=== PATIENT | male | born 1945 | race Caucasian/White ===

== ENCOUNTER 2019-12-16 09:17 | Inpatient (IN) ==
--- NOTE | 2019-11-14 13:11 | PAT Medication Instructions ---
Medication Instructions Date of Service November 14, 2019 Home Medications acetaminophen [Tylenol Extra Strength] 1,000 mg PO Q6H PRN amlodipine 10 mg PO QAM aspirin 325 mg PO QAM atorvastatin [Lipitor] 10 mg PO PM candesartan 16 mg PO QAM coQ10 (ubiquinol) 100 mg PO QPM omeprazole 20 mg PO QAM ASK your prescriber and surgeon aspirin 325 mg PO QAM (check for instructions with your surgeon, and be sure OK with master automotive glass technician before stopping) STOP taking 2 weeks before surgery If surgery is within 2 weeks, stop taking as soon as possible. coQ10 (ubiquinol) 100 mg PO QPM DO NOT take the morning of surgery candesartan 16 mg PO QAM Take morning of surgery With a small sip of water, OTHERWISE NOTHING TO EAT OR DRINK AFTER MIDNIGHT: acetaminophen [Tylenol Extra Strength] 1,000 mg PO Q6H PRN (if needed, may be taken up to four hours before surgery) amlodipine 10 mg PO QAM omeprazole 20 mg PO QAM Take evening before surgery acetaminophen [Tylenol Extra Strength] 1,000 mg PO Q6H PRN (if needed) atorvastatin [Lipitor] 10 mg PO PM Other Notes If you have any questions please call us at [phone] or [phone] or [phone] or [phone]
--- NOTE | 2019-11-15 14:16 | Anesthesiology Consultation ---
Date of Service November 15, 2019 Assessment & Plan (1) Encounter for pre-operative examination: COVID Status: As of 11/14 assessment, patient denies travel to endemic area, known exposure/sick contacts, or symptoms of COVID19. Patient instructed that they and their household members must follow strict social distancing guidelines, wear a mask in public and avoid travel for 14 days prior to surgery. Preoperative COVID19 testing to be completed prior to surgery per surgeon's arr angements. Patient made aware to self-isolate as much as possible between COVID testing and surgery. Chart Review Chart Review: Acceptable Risk for Surgery (pending surgeon ordered PCP clearance) and Patient seen in Pre Admission Testing Teaching & Discussion Instructed NPO after midnight before surgery, except medications with 15 cc of water. Medication instructions provided according to the PAT guidelines. History Surgery Operation Date: 12/16/19 07:45 Proposed Procedures p L4-L5 Decompression and Fusion, Spinal Cord Monitoring - Wes Song, Height/Weight Height: 5 ft 7 in Weight: 99.6 kg Allergies Allergy/AdvReac Type Severity Reaction Status Date / Time No Known Allergies Allergy Verified 11/10/19 13:52 Medications Home Medications Medication Instructions Recorded Confirmed Last Taken acetaminophen [Tylenol Extra 1,000 mg PO Q6H PRN 11/10/19 11/10/19 Unknown Strength] amlodipine 10 mg PO QAM 11/10/19 11/10/19 Unknown aspirin 325 mg PO QAM 11/10/19 11/10/19 Unknown atorvastatin [Lipitor] 10 mg PO PM 11/10/19 11/10/19 Unknown candesartan 16 mg PO QAM 11/10/19 11/10/19 Unknown coQ10 (ubiquinol) 100 mg PO QPM 11/10/19 11/10/19 Unknown omeprazole 20 mg PO QAM 11/10/19 11/10/19 Unknown Past Medical History Medical History (Updated 11/15/19 @ 14:20 by Mauro Mar) Arthritis CAD (coronary artery disease) s/p cardiac cath with one stent 2011. Previously followed with Dr. Rose, was released from the practice and now just follows with PCP. GERD (gastroesophageal reflux disease) Hyperlipidemia Hypertension Exercise / Class Metabolic Activity II 4-5 Yardwork/Stairs/Walk up hill (Limited by knee pain but denies any SOB or CP with 1 FOS. Does yardwork.) Past Surgical History Surgical History (Updated 11/10/19 @ 15:11 by Malinda Collazo RN) History of cardiac cath 1 STENT PLACED [place]2011 History of colonoscopy History of total knee replacement R/L Past Anesthesia History No Hx of Anesthesia Complications and No Family Hx of Anesthesia Complications History of PONV No Hx of PONV and No Hx of Motion Sickness Social History Smoking Status: Never smoker Do You Dip or Chew Tobacco: No Hx Alcohol Use: No Hx Substance Use: No Review of Systems Pt denies any recent chest pain, shortness of breath, palpitations, cough, fever, URI, or uncontrolled acid reflux (controlled with medications). Physical Exam Vital Signs BP: 130/72 P: 71bpm SPO2: 96% RA T: 98.0 F R: 12 ENMT Mouth: + chipped teeth (upper incisors) and + macroglossia; no dental restorations and no loose teeth Thyromental Distance: > or= 3.5 Finger Breadths Mallampati Class: II Neck normal visual inspection and + limited neck extension (very) Respiratory normal respiratory effort Auscultation: lungs clear to auscultation bilaterally Cardiovascular Rate/Rhythm: regular rate and regular rhythm (few ectopic beats) Heart Sounds: no murmur Extremities: no edema Testing Laboratory Results 11/15/19 14:37 11/15/19 14:37 PT 11.2 Seconds (9.0-12.0) 11/15/19 14:37 INR 1.1 (0.9-1.1) 11/15/19 14:37 APTT 31.7 Seconds (21.0-31.0) H 11/15/19 14:37 Urine Color Yellow 11/15/19 Unknown Urine Appearance Clear (Clear) 11/15/19 Unknown Urine pH 5.0 (4.5-7.5) 11/15/19 Unknown Ur Specific [place] 1.017 (1.000-1.030) 11/15/19 Unknown Urine Protein 2+ (Negative) H 11/15/19 Unknown Urine Glucose (UA) Negative (Negative) 11/15/19 Unknown Urine Ketones Negative (Negative) 11/15/19 Unknown Urine Nitrite Negative (Negative) 11/15/19 Unknown Ur Leukocyte Esterase Negative (Negative) 11/15/19 Unknown Urine WBC (Auto) 1-5 /hpf (0-5) 11/15/19 Unknown Urine RBC (Auto) 0-4 /hpf (0-4) 11/15/19 Unknown U Hyaline Cast (Auto) 0 /lpf (0-5) 11/15/19 Unknown U Epithel Cells (Auto) 5-10 /lpf (0-5) H 11/15/19 Unknown Urine Bacteria (Auto) Negative (Negative) 11/15/19 Unknown Blood Type O Positive 11/15/19 14:37 Antibody Screen NEGATIVE 11/15/19 14:37 Electrocardiogram Date: 11/15/19 Findings: + NSR @ (69 with sinus arrhythmia) Chest X-Ray Date: 11/15/19 Findings: + NAD Echocardiogram Date: 02/19/17 EF: 65-70% Mildly dilated ascending aorta at 3.9 cm. Basal inferior segment and basal inferoseptal segment are abnormal. Not previously reported.
--- NOTE | 2019-11-15 14:55 | XRay Report ---
TWO VIEW CHEST CLINICAL HISTORY: Preoperative examination. FINDINGS: PA and lateral chest radiographs are obtained. No prior studies are available for compariso n at the time of dictation. The cardiomediastinal silhouette is unremarkable. There are calcified le ft hilar lymph nodes. The lungs and pleural spaces are clear. There is no pneumothorax. The bony thor ax appears intact. IMPRESSION: No active disease in the chest. ACT 112: Negative or not required by law. Electronically signed by: Vishnu Harding M.D. 11/15/2019 2:53 PM
[2019-11-15 16:00] LABS: Basophils # (auto) 0.04 K/uL (0-0.2); Basophils % (auto) 0.5 %; Eosinophils # (auto) 0.07 K/uL (0-0.5); Eosinophils % (auto) 0.9 %; Hematocrit (blood only) 47.3 % (42-52); Hemoglobin 16.1 g/dL (14.0-18.0); Immature Granulocytes # (auto) 0.01 K/uL (0.00-0.02); Immature Granulocytes % (auto) 0.1 %; Lymphocytes # (auto) 2.29 K/uL (1.2-3.4); Lymphocytes % (auto) 29.6 %; Mean Corpuscular Hemoglobin 32.6 pg (25-34); Mean Corpuscular Volume 95.7 fL (80-100); Monocytes # (auto) 0.75 K/uL (0.11-0.59); Monocytes % (auto) 9.7 %; Neutrophils # (auto) 4.57 K/uL (1.4-6.5); Neutrophils % (auto) 59.2 %; Platelet Count 221 K/uL (130-400); RDW Coefficient of Variation 12.6 % (11.5-14.5); RDW Standard Deviation 44.3 fL (36.4-46.3); Red Blood Count 4.94 M/uL (4.7-6.1); White Blood Count 7.73 K/uL (4.8-10.8)
[2019-11-15 16:03] LABS: Appearance Urine Clear (Clear); Bacteria Urine Automated Negative (Negative); Bilirubin Urine Negative (Negative); Blood Urine 1+ (Negative); Cast Urine Automated 0 /lpf (0-5); Color Urine Yellow; Glucose Urine UA Negative (Negative); Ketones Urine Negative (Negative); Leukocyte Esterase Urine Negative (Negative); Nitrite Urine Negative (Negative); Protein Urine 2+ (Negative); RBC Urine Automated 0-4 /hpf (0-4); Specific Gravity Urine 1.017 (1.000-1.030); Urobilinogen Urine Negative (Negative)
[2019-11-15 16:09] LABS: BUN Creatinine Ratio 12.9 (10-20); Creatinine Clr Calc Pharmacy 52.1 ml/min; Est GFR (African American) 55.8; Est GFR (Non-African American) 48.2; Potassium 3.9 mmol/L (3.5-5.1)
[2019-11-15 16:11] LABS: INR 1.1 (0.9-1.1); Partial Thromboplastin Ratio 1.1; Partial Thromboplastin Time 31.7 Seconds (21.0-31.0); Prothrombin Time 11.2 Seconds (9.0-12.0)
--- NOTE | 2019-11-16 06:01 | Electrocardiogram Report ---
Test Reason : Blood Pressure : / mmHG Vent. Rate : 069 BPM Atrial Rate : 069 BPM P-R Int : 184 ms QRS Dur : 096 ms QT Int : 390 ms P-R-T Axes : 049 074 048 degrees QTc Int : 417 ms Normal sinus rhythm with sinus arrhythmia Normal ECG No previous ECGs available Confirmed by Adria Frias ([id number]) on 11/16/2019 6:01:29 AM Referred By: Wes Song Confirmed By:Adria Frias
[~2019-12-16 09:17] MED LIST: ACETAMINOPHEN 500 MG TAB PO SCH; CeleBREX 200 MG CAP PO SCH; GABAPENTIN 300 MG CAP PO SCH; LR 15ML/HR IV SCH; ceFAZolin 2000MG 2,000 MG/15 ML SYR IV SCH
[2019-12-16] MEDS ORDERED: NEOSTIGMINE METHYLSULFATE 1 MG/ML 10ML VIAL ONE (10:50)
[2019-12-16] MEDS ORDERED: ONDANSETRON INJ 2 MG/ML 2 ML VIAL ONE (10:50)
[2019-12-16] MEDS ORDERED: MIDAZOLAM HCL 1 MG/ML 2ML VIAL ONE (10:50)
[2019-12-16] MEDS ORDERED: GLYCOPYRROLATE 0.2 MG/ML VIAL ONE (10:50)
[2019-12-16] MEDS ORDERED: DEXAMETHASONE SOD INJ 4 MG/ML VIAL ONE (10:50)
[2019-12-16] MEDS ORDERED: PROPOFOL IV EMULSION 10 MG/ML 20 ML VIAL IV ONE (10:50)
[2019-12-16] MEDS ORDERED: fentaNYL citrate 100 MCG/2 ML VIAL ONE (10:50)
[2019-12-16] MEDS ORDERED: LIDOCAINE HCL 2% 2 ML VIAL/AMP(20MG/ML) INFIL ONE (10:50)
--- NOTE | 2019-12-16 11:14 | History & Physical Bridge Note ---
Date of Service December 16, 2019 History & Physical Bridge Note I have examined the patient, reviewed the History & Physical and in the interval since the performance of the History & Physical I have noted the following changes of clinical significance: no changes noted
--- NOTE | 2019-12-16 11:15 | History & Physical Report ---
Date of Service December 16, 2019 Assessment & Plan (1) Neurogenic claudication due to lumbar spinal stenosis: Admission and Anticipated Discharge Date Admission Date: L4-L5 decompression fusion History of Present Illness Chief Complaint: Back and leg pain Primary Care Provider: Jovany Zhang This is a 74-year-old male who presents with worsening back and leg pain peer after failing course of nonoperative care is here for surgical intervention. Allergies Allergy/AdvReac Type Severity Reaction Status Date / Time No Known Allergies Allergy Verified 12/16/19 10:06 Home Medications Home Medications Medication Instructions Recorded Confirmed Type acetaminophen [Tylenol Extra 1,000 mg PO Q6H PRN 11/10/19 12/16/19 History Strength] amlodipine [Norvasc] 10 mg PO QAM 11/10/19 12/16/19 History aspirin 325 mg PO QAM 11/10/19 12/16/19 History atorvastatin [Lipitor] 10 mg PO PM 11/10/19 12/16/19 History candesartan [Atacand] 16 mg PO QAM 11/10/19 12/16/19 History coQ10 (ubiquinol) 100 mg PO QPM 11/10/19 12/16/19 History omeprazole 20 mg PO QAM 11/10/19 12/16/19 History Past Med/Surg History Medical History (Updated 12/16/19 @ 11:14 by Wes Song DO) Arthritis CAD (coronary artery disease) s/p cardiac cath with one stent 2011. Previously followed with Dr. Rose, was released from the practice and now just follows with PCP. GERD (gastroesophageal reflux disease) Hyperlipidemia Hypertension Surgical History History of cardiac cath 1 STENT PLACED [place] 2011 History of colonoscopy History of total knee replacement R/L Social History Smoking Status: Never smoker Do You Dip or Chew Tobacco: No; Hx Alcohol Use: No Hx Substance Use: No Preferred Language: Telugu Communication Ability: Effective Shredding Specialist Required: No Beliefs That Will Affect Care: None Current Living Situation: Spouse Other Information That Helps Us Care for You: No Feels Safe at Home: Yes Safety Concerns: Feels Safe At This Time Assistive Devices: None Physical Exam Physical Exam: Patient is alert and oriented neurologically intact. Heart regular rate and rhythm. Lungs clear to auscultation. Results & Data ([facility]) Vital Signs (Past 12 Hours) Vital Signs Temp Pulse Resp BP Pulse Ox 12/16/19 10:11 36.6 C 71 18 169/79 H 96
[2019-12-16] MEDS ORDERED: BUPIVACAINE/EPINEPHRINE 0.25% 1:200,000 30 ML VIAL ONE (11:32)
[2019-12-16] MEDS ORDERED: BACITRACIN INJ 50,000 UNIT VIAL ONE (11:32)
[2019-12-16] MEDS ORDERED: ePHEDrine sulfate 50 MG/ML AMP IV PRN (11:59)
[2019-12-16] MEDS ORDERED: PROMETHAZINE HCL 12.5 MG in SODIUM CHLORIDE 0.9% 50 ML IV PRN ×2 (11:59→15:34)
[2019-12-16] MEDS ORDERED: METOCLOPRAMIDE HCL INJ 5 MG/ML 2 ML VIAL IV PRN ×2 (11:59→15:34)
[2019-12-16] MEDS ORDERED: ONDANSETRON INJ 2 MG/ML 2 ML VIAL IV PRN (11:59)
[2019-12-16] MEDS ORDERED: ATROPINE SULFATE 0.1 MG/ML 10ML SYR IV PRN (11:59)
[2019-12-16] MEDS ORDERED: fentaNYL citrate 100 MCG/2 ML VIAL IV PRN (11:59)
[2019-12-16] MEDS ORDERED: HYDROmorphone INJ 2 MG/ML SYR/VIAL IV PRN (11:59)
[2019-12-16] MEDS ORDERED: HYDROmorphone INJ 2 MG/ML SYR/VIAL ONE (12:37)
[2019-12-16] MEDS ORDERED: FLOSEAL HEMOSTATIC MATRIX 10ML TOP ONE (12:39)
--- NOTE | 2019-12-16 13:41 | Operative Report ---
Post Operative Report Pre & Post Diagnosis Operation Date: 12/16/19 10:35 Pre-Op Diagnosis: Spinal Stensis, Lumbar Region with Neurogenic Claudication Post-Op Diagnosis: Spinal Stensis, Lumbar Region with Neurogenic Claudication I identified the patient and participated in the time-out.: Yes Procedure Operation Date: 12/16/19 10:35 Actual Procedures #1 lumbar decompression bilateral medial facetectomies and foraminotomies L3-4 and L4-5. #2 posterior spinal fusion L4-5 per #3 placement posterior instrumentation L4-5. #4 interbody fusion L4-5. #5 placement of peek cage 13 x 26 mm at L4-5. #6 placement locally harvested morselized autograft in the posterior lateral gutters. #7 placement infuse collagen sponge, master graft in the posterior lateral gutters and osteopenia by space. Surgeon Wes Song, DO Exhibits Manager Geovany Roberto Estimated Blood Loss 100 Findings See Below The patient is 5 feet 7 inches tall weighing over 99 kg with a BMI in excess of 34. The patient's body habitus did create significant technical difficulty requiring her deepest retractors and longest instruments in order to perform this procedure. This at least 25% increase to the operative time. Specimens None Indications This is a 74-year-old male who presents above-mentioned diagnosis after failing extensive course of nonoperative care is here for the above-mentioned procedure. Description of Procedure Patient was met with identified informed consent obtained. Patient was then taken to the operative suite underwent an patient placed in a prone position the Eyad table on top Pramod frame. All bony prominences well-padded eyes inspected to ensure no external pressure placed upon them. This point the lumbar spine was prepped and draped in normal sterile fashion. Sharp dissection with the assistance of Bovie cautery is performed down to and exposing the lamina and transverse processes of L4 and L5 bilaterally and then from a caudal cephalad fashion neck complete laminectomy of L4 partial laminectomy of L3 was performed including bilateral medial facetectomies and foraminotomies addressing severe spinal stenosis. Pedicle screws were then placed in L4 and L5 bilaterally with assistance of fluoroscopy the proper sized yadira placed. By way of a transforaminal approach on the right complete discectomy of L4-5 was performed endplates curetted to subcortical bleeding bone and a 13 x 26 mm peek cage filled with osteo-bone graft tapped in position. The rods then locked into final position bilaterally. The transverse processes of L4 and L5 bur to subcortical bleeding bone. Infuse collagen sponge master graft and local autograft was then placed in the posterior gutters. 15 round EDISON drain inserted. Incision was then closed with 1 Vicryl the fascia 2-0 Vicryl subcutaneously and 4 Monocryl for final skin closure. Steri-Strip sterile dressings placed. Patient waken taken to PACU stable condition. Please note spinal cord monitoring was utilized that the procedure no changes noted. Lastly Geovany pierce was present at the entire surgery involved the patient positioning complex portions of the surgery and final skin closure. I attest to the content of the Intraoperative Record and any orders documented therein. Any exceptions are noted below.
--- NOTE | 2019-12-16 13:44 | Fluoroscopy Report ---
FL lumbar spine 2-3V CLINICAL HISTORY: L4-L5 DECOMP/FUSION COMPARISON STUDY: None. FLUOROSCOPY TIME: 14 seconds. FLUOROSCOPIC IMAGES: 2 FINDINGS: Fluoroscopy was provided during L4-L5 discectomy with interbody spacer placement. Posterior decompression is noted. There are bilateral pedicle screws at the L4 and L5 levels. Hardware is inta ct. IMPRESSION: Fluoroscopy provided during L4-L5 discectomy, posterior decompression and bilateral pedi arnoldo screw fusion. ACT 112: Negative or not required by law. Electronically signed by: Hudson Covington M.D. 12/16/2019 1:43 PM
[2019-12-16] MEDS ORDERED: ROCURONIUM BROMIDE 10 MG/ML 5 ML VIAL IV ONE (13:49)
[2019-12-16] MEDS ORDERED: ePHEDrine sulfate 50 MG/ML SYR ONE (14:14)
[2019-12-16] MEDS ORDERED: PHENYLEPHRINE 100MCG/ML 5ML SYR ONE (14:14)
[2019-12-16] MEDS ORDERED: ACETAMINOPHEN 500 MG TAB PO PRN ×2 (15:34→15:39)
[2019-12-16] MEDS ORDERED: hydrOXYzine HCl 25 MG TAB PO PRN (15:34)
[2019-12-16] MEDS ORDERED: DO NOT ADMINISTER FLU VACCINE PRN (15:34)
[2019-12-16] MEDS ORDERED: bisacodyL 10 MG SUPP PR PRN (15:34)
[2019-12-16] MEDS ORDERED: SOD PHOSPHATE/SOD BIPHOSPHATE ENEMA 132 ML BTL PR PRN (15:34)
[2019-12-16] MEDS ORDERED: NALOXONE HCL 0.4 MG/1 ML VIAL/CARP IV PRN (15:34)
[2019-12-16] MEDS ORDERED: ONDANSETRON 4 MG OD TAB PO PRN (15:34)
[2019-12-16] MEDS ORDERED: DO NOT ADMINISTER PNEUMOCOCCAL VACCINE PRN (15:34)
[2019-12-16] MEDS ORDERED: FAMOTIDINE 20 MG TAB PO PRN (15:34)
[2019-12-16] MEDS ORDERED: ALUMINUM/MAGNESIUM SUSP 30 ML UDC PO PRN (15:34)
[2019-12-16] MEDS ORDERED: ACETAMINOPHEN 1,000 MG/100 ML VIAL IV PRN (15:34)
[2019-12-16] MEDS ORDERED: diphenhydrAMINE Capsule 25 MG CAP PO PRN (15:34)
[2019-12-16] MEDS ORDERED: HYDROmorphone INJ 1 MG/ML SYRINGE IV PRN (15:34)
[2019-12-16] MEDS ORDERED: LORazepam 0.5 MG/1 ML VIAL IV PRN (15:34)
[2019-12-16] MEDS ORDERED: MAGNESIUM HYDROXIDE SUSP 30 ML UDC PO PRN (15:34)
--- NOTE | 2019-12-16 15:58 | Anesthesiology Progress Note ---
Date of Service December 16, 2019 Anesthesia Post Procedure Vital Signs Vital Signs: Temp Pulse Pulse Resp BP BP Pulse Ox 12/16/19 15:46 73 16 130/77 95 12/16/19 15:10 36.4 C L 72 18 147/77 H 95 12/16/19 14:55 36.4 C L 71 13 153/69 H 95 12/16/19 14:45 68 16 135/85 96 12/16/19 14:35 67 14 165/68 H 95 12/16/19 14:25 65 14 152/71 H 98 12/16/19 14:15 68 14 189/74 H 98 12/16/19 14:05 36.7 C 78 17 179/84 H 98 12/16/19 10:11 36.6 C 71 18 169/79 H 96 Pain Intensity Lower Medial Back: Pain Intensity: 6 Transfer of Care Handoff Completed per policy Notes Mental Status: alert / awake / arousable and participated in evaluation Patient Amnestic to Procedure: Yes Nausea / Vomiting: adequately controlled Pain: adequately controlled Airway Patency, RR, SpO2: stable & adequate BP & HR: stable & adequate Hydration State: stable & adequate Anesthetic Complications: no major complications apparent
[2019-12-16] MEDS: HYDROmorphone INJ 0.5 MG/0.5 ML SYR IV PRN (16:05)
[2019-12-16] MEDS: SODIUM CHLORIDE 0.9% 1000ML 1,000 ML IV SCH ×2 (16:05→22:07)
[2019-12-16] MEDS: ONDANSETRON INJ 2 MG/ML 2 ML VIAL IV PRN (16:10)
--- NOTE | 2019-12-16 16:48 | Consultation ---
Date of Consultation December 16, 2019 Assessment & Plan (1) Neurogenic claudication due to lumbar spinal stenosis: S/P Lumbar decompression and fusion L4-[address] Song, POD #0 EBL 100ml; EDISON drain 90ml tolerated procedure well pain/wound management per ortho activity and therapy as directed by ortho pt was educated and instructed on incentive spirometry q1hwa, wean O2 as able monitor h/h pre op labs were reviewed, bsg 160 - will obtain a1c in a.m.; also elevated cr 1.44 - monitor bmp (2) CAD (coronary artery disease): no chest pain/sob continue asa, statin, ARB (3) Hypertension: blood pressure stable continue amlodipine and candesartan monitor (4) Elevated serum creatinine: on pre op labs cr 1.44 unknown baseline, possible underlying ckd will follow labs in mean time avoid nephrotoxic agents (5) GERD (gastroesophageal reflux disease): continue PPI Disposition: per primary Follow up: PCP Dr. Zhang Pt was seen and examined in collaboration with Dr. Ramos, please see addendum Starting 12/16/2019 pt will be under the care of Dr. Hayward Thank you for this consultation. We will follow the patient with you during their hospital stay. You [facility] via pager @ [phone]. Supervising Physician Co-Signing Physician Notes I, Dr. Hossein Ramos, have seen and examined the patient Errol Hamilton with physician acute care nursing assistant and would like to comment that On physical Exam General: no acute distress Lungs: clear to auscultation bilaterally, no wheezing Heart: regular rate Back: dressing on lower back with drain Extremities/Neuro: able to move all extremities Assessment and Plan - Patient will Spinal Stensis, Lumbar Region with Neurogenic Claudication - s/p back surgery by Dr. Song on 12/16/19 (Actual Procedures #1 lumbar decompression bilateral medial facetectomies and foraminotomies L3-4 and L4-5. #2 posterior spinal fusion L4-5 per #3 placement posterior instrumentation L4-5. #4 interbody fusion L4-5. #5 placement of peek cage 13 x 26 mm at L4-5. #6 placement locally harvested morselized autograft in the posterior lateral gutters. #7 placement infuse collagen sponge, master graft in the posterior lateral gutters and osteopenia by space.) -PT/OT evlautions -management of the wound vac and DVT prophylaxis as per orthopedics -trend the CBC , and renal function -continue home medications of amlodipine and statin as documented by physician acute care nursing assistant for other health issues, home medication of candesartan to be replaced with losartan while in hospital -medicine hospitalist consult service to follow with primary orthopedic service -My colleague Dr. Hayward will be the hospitalist consult attending starting on 12/17/2019 History of Present Illness Requesting Physician: Dr. Song Reason for Consultation: Postop medical management Attending Physician: Wes Song, DO History of Present Illness This is a pleasant 74-year-old male with significant past medical history of CAD, HTN, HLD, GERD who presents for elective lumbar procedure by Dr. Song. Patient suffers from lumbar spinal stenosis with neurogenic claudication and underwent L4-L5 decompression fusion today. He tolerated procedure well. He has hx of CAD with history of stent in 2011. He denies any chest pain or exertional dyspnea. He is maintained as outpatient on full dose aspirin, atorvastatin and candesartan. His blood pressures been t owards outpatient with amlodipine and candesartan. Postoperatively he feels well but is complaining of incisional pain. He otherwise feels uncomfortable. He denies any fever, chills, sweats, and his, dizziness, chest pain, shortness breath, cough, nausea, vomiting, abdominal pain. He is requesting a meal tray. Allergies Allergy/AdvReac Type Severity Reaction Status Date / Time No Known Allergies Allergy Verified 12/16/19 10:06 Home Medications Home Medications Medication Instructions Recorded Confirmed Type acetaminophen [Tylenol Extra 1,000 mg PO Q6H PRN 11/10/19 12/16/19 History Strength] amlodipine [Norvasc] 10 mg PO QAM 11/10/19 12/16/19 History aspirin 325 mg PO QAM 11/10/19 12/16/19 History atorvastatin [Lipitor] 10 mg PO PM 11/10/19 12/16/19 History candesartan [Atacand] 16 mg PO QAM 11/10/19 12/16/19 History coQ10 (ubiquinol) 100 mg PO QPM 11/10/19 12/16/19 History omeprazole 20 mg PO QAM 11/10/19 12/16/19 History Patient History Medical History (Updated 12/16/19 @ 17:12 by Radha Wilkins PA-C) Arthritis CAD (coronary artery disease) s/p cardiac cath with one stent 2011. Previously followed with Dr. Rose, was released from the practice and now just follows with PCP. GERD (gastroesophageal reflux disease) Hyperlipidemia Hypertension Surgical History History of cardiac cath 1 ST[facility]ED [facility] 2011 History of colonoscopy History of total knee replacement R/L Family History Father Cancer Social History Smoking Status: Never smoker Do You Dip or Chew Tobacco: No; Hx Alcohol Use: No Hx Substance Use: No Preferred Language: Omani Communication Ability: Effective Driving Instructor Required: No Beliefs That Will Affect Care: None Current Living Situation: Spouse Other Information That Helps Us Care for You: No Feels Safe at Home: Yes Safety Concerns: Feels Safe At This Time Assistive Devices: None Review of Systems Review of Systems: All systems reviewed & are unremarkable except as noted in HPI & below Physical Exam Physical Exam: Constitutional: WD/WN, male, vitals as above, NAD, sitting up in bed, pleasant, conversing easily Head: Normocephalic, Atraumatic Eyes: PERRL, conjunctivae normal, anicteric sclerae ENMT: external ear and nose normal, oropharynx normal Neck: trachea midline, no thyromegaly normal visual inspection Respiratory: normal respiratory effort, lungs clear to auscultation, no wheeze, rales, rhonchi. Normal insp/exp effort, no accessory muscle use Cardiovascular: RRR, no murmur, no edema Vessels: no JVD or carotid bruit Chest: normal inspection of chest Abdomen: normal bowel sounds, soft, nontender, no hepatosplenomegaly Musculoskeletal: no cyanosis or clubbing, extremities motor strength 5/5 Skin: no rashes, warm and dry normal turgor, lumbar dressing CDI, EDISON drain with serosanguineous drainage Neurologic: PERRL, EOMI, accommodation nl, no face palsy, no dysarthria CN's II-XI intact bilaterally and moves all extremities Psychiatric: A+Ox3, euthymic affect Lymphatic: no cervical or axillary lymphadenopathy : +cobian cath with yellow urine Results & Data ([facility]) Vital Signs (Past 12 Hours) Vital Signs Temp Pulse Pulse Resp BP BP Pulse Ox 12/16/19 16:15 36.3 C L 77 16 130/74 95 12/16/19 15:46 73 16 130/77 95 12/16/19 15:10 36.4 C L 72 18 147/77 H 95 12/16/19 14:55 36.4 C L 71 13 153/69 H 95 12/16/19 14:45 68 16 135/85 96 12/16/19 14:35 67 14 165/68 H 95 12/16/19 14:25 65 14 152/71 H 98 12/16/19 14:15 68 14 189/74 H 98 12/16/19 14:05 36.7 C 78 17 179/84 H 98 12/16/19 10:11 36.6 C 71 18 169/79 H 96 Laboratory Results Preoperative lab work from 11/15/2019 CBC: WBC 7.73, H&H 16.1 and 47.3, platelet 221 BMP sodium 141, K3.9, BUN 19, creatinine 1.44, glucose 160 Diagnostic Findings Lumbar Xray: IMPRESSION: Fluoroscopy provided during L4-L5 discectomy, posterior decompression and bilateral pedicle screw fusion CXR: IMPRESSION: No active disease in the chest. Pt has nuclear stress test 02/2019 negative for ischemia echo 02/2017 - EF 65-70% also noted basal inferior segment and basal inferoseptal abnormal Medications Administered Acetaminophen (Acetaminophen 500 Mg Tab) 1,000 mg PO PREOP ANUM Stop: 12/16/19 18:00 Last Admin: 12/16/19 10:00 Dose: 1,000 mg Documented by: [id number] Celecoxib (Celebrex 200 Mg Cap) 200 mg PO PREOP ANUM Stop: 12/16/19 18:00 Last Admin: 12/16/19 10:02 Dose: Not Given Documented by: [id number] Gabapentin (Gabapentin 300 Mg Cap) 300 mg PO PREOP ANUM Stop: 12/16/19 18:00 Last Admin: 12/16/19 10:00 Dose: 300 mg Documented by: [id number] Hydromorphone HCl (Hydromorphone Inj 0.5 Mg/0.5 Ml Syr) 0.5 mg IV Q3H PRN PRN Reason: MOD pain (scale 4-6) & Pre PT Stop: 12/30/19 15:33 Last Admin: 12/16/19 16:05 Dose: 0.5 mg Documented by: [id number] Cefazolin Sodium (Ancef 2000mg) 2,000 mg in 15 mls @ 3.75 mls/min IV PREOP [facility]; Protocol Stop: 12/17/19 05:59 Last Admin: 12/16/19 11:55 Dose: 3.75 mls/min Documented by: [id number] Lactated Ringer's (Lr) 1,000 mls @ 15 mls/hr IV .Q24H ANUM Stop: 12/17/19 05:59 Last Infusion: 12/16/19 11:55 Dose: 0 mls/hr Documented by: [id number] Admin: 12/16/19 10:04 Dose: 15 mls/hr Documented by: [id number] Sodium Chloride (Nss 1000ml) 1,000 mls @ 150 mls/hr IV .Q6H40M [facility] Stop: 01/15/20 15:33 Last Admin: 12/16/19 16:05 Dose: Not Given Documented by: [id number] Miscellaneous (Candesartan ~ Order Awaiting Action) 1 ea N/A QS [facility] Stop: 01/15/20 15:59 Last Admin: 12/16/19 16:48 Dose: Not Given Documented by: [id number] Ondansetron HCl (Ondansetron Inj 2 Mg/Ml 2 Ml Vial) 4 mg IV Q6H PRN PRN Reason: Nausea &/or Vomiting Stop: 01/15/20 15:33 Last Admin: 12/16/19 16:10 Dose: 4 mg Documented by: [id number] Discontinued Medications Bacitracin (Bacitracin Inj 50,000 Unit Vial) Confirm Administered Dose 50,000 units .ROUTE .STK-MED ONE Stop: 12/16/19 11:33 Last Admin: 12/16/19 12:42 Dose: 50,000 units Documented by: [id number] Bupivacaine HCl/Epinephrine Bitart (Bupivacaine/Epinephrine 0.25% 1:200,000 30 Ml Vial) Confirm Administered Dose 30 ml .ROUTE .STK-MED ONE Stop: 12/16/19 11:33 Last Admin: 12/16/19 12:42 Dose: 30 ml Documented by: [id number] Fentanyl Citrate (Fentanyl Citrate 100 Mcg/2 Ml Vial) 50 mcg IV Q5M PRN PRN Reason: PACU Use Only-Pain Stop: 12/16/19 19:59 Last Admin: 12/16/19 14:31 Dose: 50 mcg Documented by: [id number] Miscellaneous ( Floseal Hemostatic Matrix 10ml) 20 ml TOP ONCE ONE Stop: 12/16/19 12:40 Last Admin: 12/16/19 13:28 Dose: 10 ml Documented by: [id number] ECG Rate (beats per minute): 69 Rhythm: normal sinus
[2019-12-16] MEDS: ceFAZolin 2000MG 2,000 MG/15 ML SYR IV SCH (20:45)
[2019-12-16] MEDS: DOCUSATE SODIUM/SENNA 50/8.6MG TAB PO SCH (20:45)
[2019-12-16] MEDS: ATORVASTATIN 10 MG TAB PO SCH (20:45)
[2019-12-16] MEDS ORDERED: NON-FORMULARY MEDICATION (Coq10 (Ubiquinol) 100 MG) PO SCH (21:00)
[2019-12-17] MEDS: traMADol HCL 50 MG TABLET PO PRN (00:54)
[2019-12-17] MEDS: ceFAZolin 2000MG 2,000 MG/15 ML SYR IV SCH (04:54)
[2019-12-17] MEDS: POLYETHYLENE (MIRALAX) 17 GM PACK PO SCH ×3 (05:08→19:12)
[2019-12-17] MEDS: SODIUM CHLORIDE 0.9% 1000ML 1,000 ML IV SCH (05:53)
[2019-12-17 07:38] LABS: Hematocrit (blood only) 40.7 % (42-52); Hemoglobin 13.9 g/dL (14.0-18.0); Immature Granulocytes # (auto) 0.03 K/uL (0.00-0.02); Immature Granulocytes % (auto) 0.2 %; Lymphocytes # (auto) 1.05 K/uL (1.2-3.4); Lymphocytes % (auto) 7.1 %; Mean Corpuscular Hemoglobin 32.3 pg (25-34); Mean Corpuscular Hgb Conc 34.2 g/dL (32-36); Mean Corpuscular Volume 94.7 fL (80-100); Mean Platelet Volume 9.5 fL (7.4-10.4); Monocytes # (auto) 1.05 K/uL (0.11-0.59); Monocytes % (auto) 7.1 %; Neutrophils # (auto) 12.61 K/uL (1.4-6.5); Neutrophils % (auto) 85.6 %; Platelet Count 188 K/uL (130-400); RDW Coefficient of Variation 12.8 % (11.5-14.5); RDW Standard Deviation 43.9 fL (36.4-46.3); White Blood Count 14.74 K/uL (4.8-10.8)
[2019-12-17 08:02] LABS: Estimated Average Glucose 134 mg/dl; Hemoglobin A1C 6.3 % (4.5-5.6)
[2019-12-17 08:06] LABS: BUN Creatinine Ratio 16.8 (10-20); Calcium 8.8 mg/dl (8.5-10.1); Creatinine Clr Calc Pharmacy 55.6 ml/min; Est GFR (African American) 60.4; Est GFR (Non-African American) 52.1; Potassium 4.3 mmol/L (3.5-5.1)
[2019-12-17] MEDS: amLODIPine BESYLATE 5 MG TAB PO SCH (08:33)
[2019-12-17] MEDS: ASPIRIN 325 MG ECTAB PO SCH (08:33)
[2019-12-17] MEDS: PANTOprazole 40 MG TAB PO SCH (08:33)
[2019-12-17] MEDS ORDERED: LOSARTAN POTASSIUM 25 MG TAB PO SCH (09:00)
--- NOTE | 2019-12-17 11:07 | Orthopedic Progress Note ---
Date of Service December 17, 2019 Assessment & Plan (1) Neurogenic claudication due to lumbar spinal stenosis: Admission and Anticipated Discharge Date Admission Date: December 16, 2019 This time initiate physical therapy monitor his EDISON output anticipate possible di scharge home Thursday or Thursday. Subjective Back pain controlled leg pain markedly improved. Physical Exam Physical Exam: Patient is comfortable is excellent strength testing. Results & Data ([facility]) Vital Signs (Past 12 Hours) Vital Signs Temp Pulse Pulse Resp BP Pulse Ox 12/17/19 07:28 36.5 C 75 18 135/65 95 12/17/19 03:20 36.4 C L 68 16 128/54 L 92 12/16/19 23:17 36.7 C 96 H 18 143/62 H 93
[2019-12-17] MEDS: ATORVASTATIN 10 MG TAB PO SCH (19:47)
[2019-12-17] MEDS: DOCUSATE SODIUM/SENNA 50/8.6MG TAB PO SCH (19:47)
--- NOTE | 2019-12-17 22:53 | Hospitalist Progress Note ---
Date of Service December 17, 2019 Assessment & Plan (1) Neurogenic claudication due to lumbar spinal stenosis: POD # 1. (2) CAD (coronary artery disease): No anginal symptoms. Continue ASA, amlodipine, candasartan, statin. (3) Hypertension: Continue amlodipine and candesartan. (4) GERD (gastroesophageal reflux disease): Continue PPI. (5) Hyperglycemia: FBS preop testing 11/15/19 160. FBS this morning 170; does not appear that pt received steroids. Hgb A1c = 6.3. Prediabetes vs diabetes. Check f/u FBS tomorrow. Will discuss further with patient. (6) DVT prophylaxis: Per Ortho protocol. (7) Encounter for consultation: Thank you for this consultation. We will follow the patient with you during their hospital stay. My cell # is [phone]. You can reach a member of the [facility] Medicine Team 06/10 via pager @ [phone]. Admission and Anticipated Discharge Date Admission Date: December 16, 2019 Subjective Recheck for medical management. Patient seen in their room around 1450. Doing well postoperatively. No chest pain, cough, SOB, nausea, vomiting. No BM yet. Ambulating. Pain well-controlled. Review of Systems: Constitutional- no fever. Cardiac- no chest pain. Pulmonary- no cough or SOB. GI- no nausea, vomiting, diarrhea, melena, hematochezia. - no urinary symptoms. Otherwise, as noted above. Physical Exam Constitutional: no acute distress Respiratory: no respiratory distress Auscultation: lungs clear to auscultation bilaterally Cardiovascular: Rate/Rhythm: regular rate and regular rhythm Vessels: no JVD Extremities: no calf tenderness and no edema Gastrointestinal (Abdomen): normal bowel sounds, soft, nontender, no hepatosplenomegaly Musculoskeletal: Extremities: no cyanosis Skin: no rashes, warm and dry Psychiatric: Orientation: alert and oriented x 3 Results & Data Results & Data ([facility]) Vital Signs (Past 12 Hours) Vital Signs Temp Pulse Pulse Resp BP Pulse Ox 12/17/19 15:05 36.6 C 65 18 150/72 H 97 12/17/19 11:46 36.4 C L 75 18 139/59 L 97 Laboratory Results 12/17/19 07:10 12/17/19 07:10
[2019-12-18] MEDS: POLYETHYLENE (MIRALAX) 17 GM PACK PO SCH ×4 (01:30→19:05)
[2019-12-18] MEDS ORDERED: BACLOFEN 10 MG TAB PO STA (03:03)
[2019-12-18] MEDS: oxyCODONE HCL IR 5 MG TAB (IMMEDIATE RELEASE) PO PRN ×4 (04:54→20:23)
[2019-12-18] MEDS: traMADol HCL 50 MG TABLET PO PRN ×2 (07:41→12:16)
--- NOTE | 2019-12-18 08:49 | Orthopedic Progress Note ---
Date of Service December 18, 2019 Assessment & Plan (1) Neurogenic claudication due to lumbar spinal stenosis: Patient has had a mild setback. He has had some increased neck pain and headaches. He does not feel safe for home discharge at this point. We will keep him today and see how he does with physical therapy and Occupational Therapy. We will see how he is feeling tomorrow and hopefully get him home at that point. Admission and Anticipated Discharge Date Admission Date: December 16, 2019 Subjective Patient was seen bedside in room 315. He has some complaints of some neck pain and a headache this morning. He recalls getting up to move pushing himself off the bed using his head and causing some significant discomfort. He is not having any radicular planes going down his arms. His back pain is well controlled he is having no lower extremity radicular symptoms. He denies any other numbness, tingling, or paresthesias. Physical Exam Physical Exam: On exam he is alert and oriented. His lower extreme motor exam reveals no focal atrophy strength 5 out of 5 detailed muscle testing without exception. His EDIOSN drain is in place and is holding suction he had 35 cc out on the last shift and 70 on the previous. The drainage is serosanguineous in nature. No clear fluid is noted the dressing is clean dry and intact. Results & Data ([facility]) Vital Signs (Past 12 Hours) Vital Signs Temp Pulse Pulse Resp BP Pulse Ox 12/18/19 07:18 36.6 C 64 16 162/70 H 99 12/18/19 02:31 73 18 123/57 L 98 12/17/19 23:29 36.4 C L 76 16 123/64 96
[2019-12-18] MEDS: ASPIRIN 325 MG ECTAB PO SCH (10:20)
[2019-12-18] MEDS: amLODIPine BESYLATE 5 MG TAB PO SCH (10:20)
[2019-12-18] MEDS: PANTOprazole 40 MG TAB PO SCH (10:20)
[2019-12-18] MEDS: HYDROmorphone INJ 0.5 MG/0.5 ML SYR IV PRN (15:19)
[2019-12-18] MEDS: LORazepam 0.5 MG TAB PO PRN (16:23)
[2019-12-18] MEDS: ONDANSETRON INJ 2 MG/ML 2 ML VIAL IV PRN (17:34)
[2019-12-18] MEDS: ATORVASTATIN 10 MG TAB PO SCH (20:23)
[2019-12-18] MEDS: DOCUSATE SODIUM/SENNA 50/8.6MG TAB PO SCH (20:24)
--- NOTE | 2019-12-18 20:34 | Hospitalist Progress Note ---
Date of Service December 18, 2019 Assessment & Plan (1) Neurogenic claudication due to lumbar spinal stenosis: POD # 2. (2) CAD (coronary artery disease): No anginal symptoms. Continue ASA, amlodipine, candasartan, statin. (3) Hypertension: Continue amlodipine and candesartan. (4) GERD (gastroesophageal reflux disease): Continue PPI. (5) Hyperglycemia: Preop testing 11/15/19 random glucose 160. Hgb A1c = 6.3. Fasting blood sugars: 12/16 170 12/17 142 Probable prediabetes. Follow-up with PCP. (6) DVT prophylaxis: Per Ortho protocol. (7) Encounter for consultation: Thank you for this consultation. We will follow the patient with you during their hospital stay. My cell # is [phone]. You can reach a member of the [facility] Medicine Team 06/10 via pager @ [phone]. Admission and Anticipated Discharge Date Admission Date: December 16, 2019 Subjective Recheck for medical management. Patient seen in their room around 1010. Experiencing fairly severe neck and back pain. Seen earlier this morning by Ortho team. No chest pain, cough, SOB, nausea, vomiting. No BM yet. Review of Systems: Constitutional- no fever. Cardiac- no chest pain. Pulmonary- no cough or SOB. GI- no nausea, vomiting, diarrhea, melena, hematochezia. - no urinary symptoms. Otherwise, as noted above. Physical Exam Constitutional: no acute distress Respiratory: no respiratory distress Auscultation: lungs clear to auscultation bilaterally Cardiovascular: Rate/Rhythm: regular rate and regular rhythm Vessels: no JVD Extremities: no calf tenderness and no edema Gastrointestinal (Abdomen): normal bowel sounds, soft, nontender, no hepatosplenomegaly Musculoskeletal: Extremities: no cyanosis Skin: no rashes, warm and dry Psychiatric: Orientation: alert and oriented x 3 Results & Data Results & Data ([facility]) Vital Signs (Past 12 Hours) Vital Signs Temp Pulse Resp BP Pulse Ox 12/18/19 15:12 36.7 C 68 17 138/72 94 Laboratory Results Laboratory Results - last 24 hr 12/18/19 04:46 Fasting Glucose 142 H
[2019-12-19] MEDS: POLYETHYLENE (MIRALAX) 17 GM PACK PO SCH ×4 (01:00→17:07)
[2019-12-19] MEDS: oxyCODONE HCL IR 5 MG TAB (IMMEDIATE RELEASE) PO PRN ×4 (02:40→21:27)
[2019-12-19] MEDS: LORazepam 0.5 MG TAB PO PRN (02:43)
[2019-12-19] MEDS: HYDROmorphone INJ 0.5 MG/0.5 ML SYR IV PRN (03:40)
[2019-12-19] MEDS: amLODIPine BESYLATE 5 MG TAB PO SCH (09:17)
[2019-12-19] MEDS: PANTOprazole 40 MG TAB PO SCH (09:17)
[2019-12-19] MEDS: ASPIRIN 325 MG ECTAB PO SCH (09:17)
--- NOTE | 2019-12-19 12:34 | Orthopedic Progress Note ---
Date of Service December 19, 2019 Assessment & Plan (1) Neurogenic claudication due to lumbar spinal stenosis: Admission and Anticipated Discharge Date Admission Date: December 16, 2019 Patient appears to have developed a spontaneous CSF leak. I have changed his dr pandya and discontinued his drain. I will begin IV fluids. I will ask for strict bedrest head of bed flat for at least 24 hours. Subjective Patient complaining mostly of cervicalgia and headaches. He denies any back or leg pain. Physical Exam Physical Exam: Patient is able to sit up without difficulty is excellent strength testing. Results & Data ([facility]) Vital Signs (Past 12 Hours) Vital Signs Temp Pulse Resp BP Pulse Ox 12/19/19 07:28 36.5 C 85 16 133/70 94 12/19/19 01:32 36.6 C 85 16 149/71 H 96
[2019-12-19] MEDS: SODIUM CHLORIDE 0.9% 1000ML 1,000 ML IV SCH ×2 (12:53→20:37)
[2019-12-19] MEDS: ATORVASTATIN 10 MG TAB PO SCH (21:27)
[2019-12-19] MEDS: DOCUSATE SODIUM/SENNA 50/8.6MG TAB PO SCH (21:28)
[2019-12-20] MEDS: POLYETHYLENE (MIRALAX) 17 GM PACK PO SCH ×4 (00:10→17:36)
[2019-12-20] MEDS: SODIUM CHLORIDE 0.9% 1000ML 1,000 ML IV SCH ×3 (04:27→19:37)
[2019-12-20] MEDS: oxyCODONE HCL IR 5 MG TAB (IMMEDIATE RELEASE) PO PRN ×4 (07:47→19:39)
[2019-12-20] MEDS: amLODIPine BESYLATE 5 MG TAB PO SCH (09:00)
[2019-12-20] MEDS: ASPIRIN 325 MG ECTAB PO SCH (09:00)
[2019-12-20] MEDS: PANTOprazole 40 MG TAB PO SCH (09:00)
--- NOTE | 2019-12-20 11:54 | Hospitalist Progress Note ---
Date of Service December 20, 2019 Assessment & Plan (1) Neurogenic claudication due to lumbar spinal stenosis: POD # 4. (2) CAD (coronary artery disease): No anginal symptoms. Continue ASA, amlodipine, candasartan, statin. (3) Hypertension: Continue amlodipine and candesartan. (4) GERD (gastroesophageal reflux disease): Continue PPI. (5) Hyperglycemia: Preop testing 11/15/19 random glucose 160. Hgb A1c = 6.3. Fasting blood sugars: 12/16 170 12/17 142 Probable prediabetes. Lab results added to DC instructions. Follow-up with PCP. (6) DVT prophylaxis: Per Ortho protocol. (7) Encounter for consultation: Thank you for this consultation. We will follow the patient with you during their hospital stay. Dr. Og will assume medical coverage today; please contact him if needed. My cell # is [phone]. You can reach a member of the [facility] Medicine Team 06/10 via pager @ [phone]. Admission and Anticipated Discharge Date Admission Date: December 16, 2019 Subjective Recheck for medical management. Patient seen in their room around 1120. Still having headache and neck pain from CSF leak, but not as severe. No BM yet. Hopes to go home tomorrow. Review of Systems: Constitutional- no fever. Cardiac- no chest pain. Pulmonary- no cough or SOB. GI- no nausea, vomiting, diarrhea, melena, hematochezia. - no urinary symptoms. Otherwise, as noted above. Physical Exam Constitutional: no acute distress Respiratory: no respiratory distress Auscultation: lungs clear to auscultation bilaterally Cardiovascular: Rate/Rhythm: regular rate and regular rhythm Vessels: no JVD Extremities: no calf tenderness and no edema Gastrointestinal (Abdomen): normal bowel sounds, soft, nontender, no hepatosplenomegaly Musculoskeletal: Extremities: no cyanosis Skin: no rashes, warm and dry Psychiatric: Orientation: alert and oriented x 3 Results & Data Results & Data ([facility]) Vital Signs (Past 12 Hours) Vital Signs Temp Pulse Resp BP Pulse Ox 12/20/19 07:31 36.8 C 87 16 142/68 H 94
[2019-12-20] MEDS: LORazepam 0.5 MG TAB PO PRN (12:42)
--- NOTE | 2019-12-20 13:41 | Orthopedic Progress Note ---
Date of Service December 20, 2019 Assessment & Plan (1) Neurogenic claudication due to lumbar spinal stenosis: Admission and Anticipated Discharge Date Admission Date: December 16, 2019 At this time explained the patient like to have 1 more day of bedrest with bathr oom privileges. He understands and agrees. If he tolerates today without difficulty and may consider discharge home tomorrow. Subjective Patient's headaches are completely resolved. He is tolerating very modest walking around the room. Physical Exam Physical Exam: On exam he is comfortable. Is eccentric to testing. Results & Data ([facility]) Vital Signs (Past 12 Hours) Vital Signs Temp Pulse Resp BP Pulse Ox 12/20/19 07:31 36.8 C 87 16 142/68 H 94
[2019-12-20] MEDS: ATORVASTATIN 10 MG TAB PO SCH (19:40)
[2019-12-20] MEDS: DOCUSATE SODIUM/SENNA 50/8.6MG TAB PO SCH (19:40)
[2019-12-20] MEDS: traMADol HCL 50 MG TABLET PO PRN (21:12)
[2019-12-21] MEDS: POLYETHYLENE (MIRALAX) 17 GM PACK PO SCH ×3 (00:03→13:03)
[2019-12-21] MEDS: oxyCODONE HCL IR 5 MG TAB (IMMEDIATE RELEASE) PO PRN ×3 (05:21→14:12)
[2019-12-21] MEDS: SODIUM CHLORIDE 0.9% 1000ML 1,000 ML IV SCH ×2 (05:22→06:35)
[2019-12-21] MEDS: amLODIPine BESYLATE 5 MG TAB PO SCH (08:39)
[2019-12-21] MEDS: ASPIRIN 325 MG ECTAB PO SCH (08:39)
[2019-12-21] MEDS: PANTOprazole 40 MG TAB PO SCH (08:39)
--- NOTE | 2019-12-21 11:42 | Discharge Summary ---
Date of Service December 21, 2019 Admission HPI Per Admitting Provider This is a 74-year-old male who presents with worsening back and leg pain peer after failing course of nonoperative care is here for surgical intervention. Principal Diagnosis Lumbar spinal stenosis with neurogenic claudication Discharge Data Allergies Allergy/AdvReac Type Severity Reaction Status Date / Time No Known Allergies Allergy Verified 12/16/19 10:06 Consultations 12/16/19 15:34 Consult Case Management - Discharge Planning Routine Consult Hospitalist Routine Procedures Performed Operation Date: 12/16/19 10:35 Actual Procedures p L4-L5 Decompression and Fusion with Interbody, Spinal Cord Monitoring(Not Applicable) - Wes Song DO Ordered Studies 12/16/19 10:35 FL fluoroscopy <1hr Routine FL lumbar spine 2-3V Routine Hospital Course (1) Neurogenic claudication due to lumbar spinal stenosis: Patient with lumbar decompression fusion tolerated so was taken to the orthopedic for postop labor postop day 1 is up and ambulating postop day #2 did look quite well but unfortunate evening began experiencing what seemed to be spinal aches. I did have him undergo 2 days of bedrest. He tolerated this well. He has no symptoms at this time. Ambulating without difficulty good strength testing. Separately discharged home. Discharge orders instructions from the chart for further review. Total Time Total Time Spent Total Time Spent (In Minutes): 20 minutes Discharge Plan Discharge Items Patient Disposition: Home - Self-Care Reason For Visit: Spinal Stensis, Lumbar Region with Neurogenic Discharge Diagnosis: Lumbar spinal stenosis with neurogenic claudication Activity: As commented below Non-emergency contact: Primary Care Provider Call non-emergency contact if: you have any medication questions Follow-up/Referrals: Jovany Zhang M.D. [Primary Care Provider] - Diet: Regular Addtl Attending Provider Instructions: ACTIVITY RECOMMENDATIONS: SELF CARE INSTRUCTIONS AFTER THORACIC/LUMBAR FUSIONS 1. You may walk to your tolerance. It is good exercise for your legs and back. Expect some back and intermittent leg aches and pains. 2. You may perform "counter-top" level activities (make a sandwich, santiago with a project, etc.). 3. No bending or lifting of more than 10 pounds or back twisting of any nature (roll like a log when turning in bed). 4. You may ride in a car for 20-30 minutes at a time. No driving until after your first visit with your doctor. 5. Frequent changes of position and restricting sitting to 30 minutes at a time will help limit the amount of back spasms and stiffness you may experience. 6. You may discontinue the use of ambulatory aids (cane, crutches, etc.) once your strength and confidence allow. 7. You may utility bill complaints investigator the shower and let water strike your incision when you arrive home at least once daily. Do not take a tub bath, sit in a hot tub or go into a swimming pool until after your first recheck in the office. SPECIAL CARE INSTRUCTIONS: VERY IMPORTANT TO READ AND REVIEW A. Your surgical incision has been closed with a cosmetic suture under the skin that will dissolve in about 6 weeks. In 14 days, you can use a pair of clean scissors and cut the suture that is left outside of the skin at the ends of your incision. 1. The small skin tapes can be removed 7 days after surgery if they have not fallen off by that point. 2. You may keep the wound open to air as much as possible to promote healing after post-op day number 5 unless told otherwise by your doctor. 3. If you think the wound looks like it is becoming infected (redness or worsening drainage) and/or you are experiencing fever, chill or worsening back pain and muscle spasms, contact the office so that we may evaluate you as soon as possible. B. Complications are uncommon, but please contact us if you have any signs or symptoms of: 1. wound infection (fever higher than 102.5 degrees F, redness, separation of wound, drainage, or increasing pain from the incision) 2. blood clots in legs (pain, swelling, redness and warmth in legs) 3. urinary tract infection (fever higher than 102.5 degrees F, burning upon urination or increased frequency of urination) 4. nerve problems (inability to walk on your toes or heels, numbness, loss of bowel or bladder control) 5. any other symptoms that concern you C. Please call the office at if you have any concerns or questions about your operation or recovery. D. No smoking! Smoking drastically decreases the chance of a solid fusion. E. Do not take any anti-inflammatory medications (Indocin, Advil, Motrin, Aspirin, Naprosyn, etc.) as these may inhibit the chance of a solid fusion. Tyl enol is okay to take for pain. MANAGING PAIN AFTER SPINAL SURGERY 1. Narcotic medication is intended for short-term use and will be provided for surgical pain. Surgical pain usually lasts for a period of 4-6 weeks. Narcotic medication includes Percocet, Vicodin, Darvocet, Tylenol #3 or Lortab. 2. Longer-term pain is more appropriately treated with non-narcotic medication such as Tylenol ES. 3. Muscle spasm is not appropriately treated with narcotics. Muscle relaxers such as Soma, Flexeril or Skelaxin can be used along with Tylenol ES. 4. Remember that we all live with some "aches and pains". This is not unusual or uncommon after an injury or as we get older. a. Back pain is expected and may include muscle spasms for 4 to 6 weeks after surgery. The pain should gradually improve. If the pain worsens for no apparent reason, please contact the office. b. Intermittent leg pain may also be experienced and should not be concerned about unless it worsens for no apparent reason. If so, please contact the office. 5. We will provide appropriate medication within the normal guidelines of their prescribed use. We will also be very cautious and aware of potential abuse and extended duration of patients' medication needs. a. Pain medications are for your comfort and to assist with sleep and rest so that the tissue can heal. They are not provided in order to return to normal activity and should not be used through the day. To do so or worsening pain at night can result from ongoing tissue damage and development of tolerance to the prescribed medicine. 6. Please allow 2-3 days to process refills. Prescriptions will not be mailed but must be picked up at the office. FOLLOW UP VISIT: Keep your scheduled follow-up appointment. Any questions, please call the office at . Addtl Rehab Care Assistant Provider Instructions: Afternoon blood sugar on 11/14 was 160. Fasting blood sugar was 170 on 12/16 and 142 on 12/17. Hgb A1c = 6.3, indicated prediabetes. Please share these results with Dr. Zhang. Do your best to exercise, eat well, and keep your weight down. Pending Studies at Discharge: No Stand-Alone Forms: My [employer], Smoking Cessation Medications and DC Order Prescriptions: New tramadol 50 mg tablet 50 mg PO Q6H PRN (Reason: pain, moderate) Qty: 20 RF: 0 oxycodone 5 mg tablet 5 mg PO Q6H PRN (Reason: pain, severe) Qty: 20 RF: 0 Continued atorvastatin [Lipitor] 10 mg Tablet 10 mg PO PM RF: 0 aspirin 325 mg Tablet 325 mg PO QAM RF: 0 amlodipine [Norvasc] 10 mg Tablet 10 mg PO QAM RF: 0 candesartan [Atacand] 16 mg Tablet 16 mg PO QAM RF: 0 acetaminophen [Tylenol Extra Strength] 500 mg Capsule 1,000 mg PO Q6H PRN (Reason: Pain) RF: 0 omeprazole 20 mg Tablet,Delayed Release (Dr/Ec) 20 mg PO QAM RF: 0 coQ10 (ubiquinol) 100 mg Capsule 100 mg PO QPM RF: 0 Discharge Orders: Discharge Order (Routine); Ordered 12/21/19 Ordered By: Wes Grove/Other Patient Handouts: Prediabetes, A1C Admission Data Admit Date/Time: 12/16/19 14:15 Attending Provider: Wes Song Admit Provider: Wes Song Primary Care Provider: Jovany Zhang Other Providers: Hossein Ramos ; Toby Og
[2019-12-21] MEDS: LORazepam 0.5 MG TAB PO PRN (13:06)
--- NOTE | 2019-12-21 15:02 | Hospitalist Progress Note ---
Date of Service December 21, 2019 Assessment & Plan (1) Neurogenic claudication due to lumbar spinal stenosis: S/P lumbar decompression fusion surgery POD # 5 by Pain is controlled Continue bowel regimen to prevent constipation Wound care, activity, DVT prophylaxis as per primary team (2) CAD (coronary artery disease): Continue ASA, amlodipine, candasartan, statin. (3) Hypertension: BP mildly elevated secondary to pain Continue amlodipine, candesartan. (4) GERD (gastroesophageal reflux disease): Continue Protonix (5) Hyperglycemia: Prediabetes Hgb A1c:6.3. Advised to follow-up with PCP as outpatient Advised healthy lifestyle changes (6) DVT prophylaxis: Per Ortho (7) Encounter for consultation: Thank you for this consultation. We will follow the patient with you during their hospital stay. Dr. Og will assume medical coverage today; please contact him if needed. My cell # is [phone]. You can reach a member of the [facility] Medicine Team 06/10 via pager @ [phone]. Admission and Anticipated Discharge Date Admission Date: December 16, 2019 Subjective Patient is seen and examined at bedside Back pain is controlled Denies any chest pain, shortness of breath, dizziness, nausea, abdominal pain Plan to be discharged home today + Flatus, no bowel movement Review of Systems Review of Systems: All systems reviewed & are unremarkable except as noted in HPI & below Physical Exam Physical Exam: Physical Exam: Vitals signs as noted above General Appearance:Moderately built and nourished, no apparent distress Head: normocephalic, Atraumatic Eyes: normal inspection, EOMI Neck: supple, Trachea midline Respiratory/Chest: Normal breath sounds, CTA Cardiovascular: S1, S2, No murmur Abdomen/GI:Soft, Non tender, Bowel sounds present Back:Surgical site in dressing Extremities/Musculoskelatal:normal inspection, no edema Neurologic/Psych:AAOX3, grossly no focal neurological deficits Skin: normal color, warm Results & Data Results & Data ([facility]) Vital Signs (Past 12 Hours) Vital Signs Temp Pulse Pulse Resp BP BP Pulse Ox 12/21/19 12:10 36.5 C 80 96 H 16 154/70 H 140/65 95 12/21/19 07:00 36.5 C 80 16 140/65 95
--- NOTE | 2019-12-29 13:34 | Coding Query ---
CODING QUERY To promote full compliance with coding requirements relating to patient care, provider participation is requested in all cases of service order clerk uncertainty. Please assist us with the question(s) below: Coding Question(s): There is documentation of head and neck pain on Progress Note 12/18/19 and Progress Note 12/19/19 documents that the patient appears to have developed a spontaneous CSF leak and the Discharge Summary documents, "did look quite well but unfortunate evening began experiencing what seemed to be spinal aches. I did have him undergo 2 days of bedrest.". Please specify below, in your clinical opinion. ( ) Spontaneous CSF Leak - Not a Postoperative Complication. Please specify further below: ( ) likely from the skull base (x ) likely from the spine ( ) unknown likely location ( ) CSF Leak - Postoperative Complication. Please specify further below: ( ) likely from the skull base ( ) likely from the spine ( ) unknown likely location ( ) No CSF leak - there was only spinal aches ( ) Other: Please Specify Physician's Response(s): Thank you Carolyn Sierra Principal Diagnosis: "that condition established after study, to be chiefly responsible for occasioning the admission of the patient to the hospital for care." Co-Existing Principal Diagnosis: "when two or more diagnoses equally meet the criteria for principal diagnosis as determined by the circumstances of admission, diagnostic work up, and/or therapy provided, and the Alphabetic Index, Tabular List, or another coding guideline does not provide sequencing direction, any one of the diagnoses may be sequenced first." "When the physician has documented what appears to be a current diagnosis in the body of the record, but has not included the diagnosis in the final diagnostic statement, the physician should be asked whether the diagnosis should be added." (Source Coding [facility] 2 QTR90. p3-4) OBIE
== END 2019-12-21 14:31 | disposition home or self-care (01) | DRG 454 ==
LOC: ASU 09:17 → 3E 14:15